=== PATIENT | male | born 1940 | race Caucasian/White ===

== ENCOUNTER → 2018-08-08 09:37 | Outpatient (CLI) | payer MEDICARE, OTHER, SELFPAY | PROVIDERS: PCP Internal Medicine; Visit Provider Internal Medicine | DX: I49.9 Cardiac arrhythmia, unspecified (principal); I25.10 Atherosclerotic heart disease of native coronary artery without angina pectoris; I10 Essential (primary) hypertension | CPT/HCPCS: 93005 ==

== ENCOUNTER 2019-03-30 09:33 | Inpatient (IN) ==
--- NOTE | 2019-03-30 09:55 | Emergency Department Note ---
ED Disposition Clinical Impression: Chronic atrial fibrillation, Non-STEMI (non-ST elevated myocardial infarction) Congestive heart failure Qualifiers: Heart failure type: unspecified Heart failure chronicity: acute on chronic Qualified Code(s): I50.9 - Heart failure, unspecified Disposition: Admitted As Inpatient Condition on Discharge: Fair Instructions: Heart Failure Additional Instructions: Discussed with Dr. Terry and patient being admitted for congestive heart failure and non-STEMI with a consult to . I will attempt to put in a daily Ryan catheter and he may need to have a urology evaluation as well Referrals: Shay Monreal [Primary Care Provider] - Time of Disposition: 11:20 - Critical Care Critical Care Time: No Attestation: On , the high probability of a clinically significant, sudden or life threatening deterioration of the following system(s) required my full and direct attention, intervention and personal management. The time I documented below is in addition to time spent performing reported procedures but includes the following listed in this critical care notation. Medical Decision Making - Medical Records Medical records reviewed: Yes: I reviewed the patient's medical records. - Job Inquiry Pt receiving controlled substance: No Job was queried for this patient: No Vital Signs: 03/30/19 09:47 03/30/19 09:53 03/30/19 09:55 Pulse Rate [Left Radial] 102 H Pulse Rate [Right] 90 Respiratory Rate 28 H Blood Pressure [Right Arm] 131/73 Blood Pressure [Right Radial Artery] 149/97 H Blood Pressure Mean [Right Arm] 92 Blood Pressure Mean [Right Radial Artery] 114 Blood Pressure Position [Right Arm] Blood Pressure Position [Right Radial Artery] Sitting 02 Sat by Pulse Oximetry 89 L 94 L 96 Oxygen Delivery Method Room Air Nasal Cannula Oxygen Flow Rate (LPM) 2 03/30/19 10:04 03/30/19 10:30 Pulse Rate [Left Radial] Pulse Rate [Right] 76 83 Respiratory Rate Blood Pressure [Right Arm] 108/58 L 119/63 Blood Pressure [Right Radial Artery] Blood Pressure Mean [Right Arm] 74 81 Blood Pressure Mean [Right Radial Artery] Blood Pressure Position [Right Arm] Sitting Sitting Blood Pressure Position [Right Radial Artery] 02 Sat by Pulse Oximetry Oxygen Delivery Method Oxygen Flow Rate (LPM) - Lab Data Lab results reviewed: Yes: I reviewed the patient's lab results. Lab Results 03/30/19 09:59: Specimen Source Left radial, O2 % 32%, ABG pH 7.40, ABG pCO2 39.9, ABG pO2 73.3 L, ABG HCO3 24.2, ABG Total CO2 25.4, ABG O2 Saturation 95, ABG Base Excess -0.6, Hayden Test Acceptable 03/30/19 10:00: WBC 8.3, RBC 4.53 L, Hgb 15.1, Hct 46.4, MCV 102.5 H, MCH 33.4 H , MCHC 32.6, RDW 14.6, Plt Count 217, MPV 8.5, Neut % (Auto) 77.2, Lymph % (Auto) 11.2, [place] % (Auto) 9.7 H, Eos % (Auto) 1.2, Baso % (Auto) 0.6, Neut # (Auto) 6.4, Lymph # (Auto) 0.9, [place] # (Auto) 0.8, Eos # (Auto) 0.1, Baso # (Auto) 0.1 03/30/19 10:00: Sodium 139, Potassium 4.0, Chloride 99, Carbon Dioxide 25, Anion Gap 14.8, BUN 33 H, Creatinine 1.16, Estimated Creat Clear 78, Estimated GFR 61, Est GFR ( Amer) 74, Glucose 151 H, Calcium 9.0, Total Bilirubin 0.9, Direct Bilirubin 0.3 H, Indirect Bilirubin 0.6, AST 17, ALT 18, Alkaline Phosphatase 69, Troponin I 0.73 H, Total Protein 6.6, Albumin 3.5 03/30/19 10:00: B-Natriuretic Peptide 367 H Result diagrams: 03/30/19 10:00 03/30/19 10:00 Orders (Tests/Meds): ED MEDICATIONS Discontinued Medications Generic Name Dose Route Start Last Admin Trade Name Freq PRN Reason Stop Dose Admin Bumetanide 2 mg 03/30/19 09:55 03/30/19 10:04 Bumex 1mg/4ml Vial IV 03/30/19 09:56 2 mg ONCE ONE Administration ORDERS Category Date Time Status Troponin I Q3H Lab 03/30/19 13:00 Ordered Troponin I Q3H Lab 03/30/19 16:00 Ordered Urinalysis and Microscopic Stat Lab 03/30/19 09:56 Ordered - Radiology Data #1 Image(s): Chest Image Reviewed: Yes I reviewed the patient's radiology results, Yes I discussed the image results w/the radiologist, Yes I have reviewed radiologist's interpretation Cardiomegaly but no overt failure - ECG Data Tracing #1 I reviewed this ECG and interpreted as documented below: Atrial fibrillation with competing junctional pacemaker left axis deviation old inferior infarct pattern possibly old anterior infarct pattern and nonspecific ST-T changes ECG initial impression date: 03/30/19 ECG initial impression time: 09:45 Resp/SOB HPI - General Stated Complaint: stomach swelling,can't walk Time Seen by Provider: 03/30/19 09:48 - History of Present Illness Patient is a 78-year-old white male who comes to the emergency room with complaints of increased swelling and shortness of breath for the past week he has a history of chronic atrial fibrillation but takes only aspirin and is on Bumex and takes 2 pills/day but has gradually been swelling more over the past week he has some orthopnea and for the past couple of days is not been able to lay down to sleep and his peripheral swelling has gotten worse as well he is a patient of Dr. Wayne and has had bypass surgery and other heart surgery at to remove an area of the heart susceptible to clots so that he would not get blood clots forming inside the heart and that is why he is only on aspirin he has never been a smoker he does have a history of having drunk alcohol in the past but none recently - Related Data Home Medications Medication Instructions Recorded Confirmed Bumetanide 0.5 mg PO DAILY 05/12/18 05/12/18 Metformin HCl 1,000 mg PO DAILY 05/12/18 05/12/18 Sertraline HCl [Zoloft 50mg tablet] 50 mg PO DAILY 05/12/18 05/12/18 Tramadol HCl [Tramadol 50mg 50 mg PO Q8 05/12/18 05/12/18 Tab] lisinopriL [Lisinopril 2.5mg Tab] 2.5 mg PO DAILY 05/12/18 05/12/18 Allergies Allergy/AdvReac Type Severity Reaction Status Date / Time No Known Allergies Allergy Verified 05/12/18 15:14 [facility] History - Hepatitis A Screen Drug use history?: No High risk sexual behaviors?: No History of sexually transmitted infection?: No Currently employed?: No Childcare worker?: No Do you have indoor plumbing?: Yes Do you have electricity?: Yes Attestation statement:: This patient has been screened for Hepatitis A risk factors. I have reviewed the patient's past medical history: Yes Medical History: Reports:: Atherosclerotic Heart Disease, Atrial Fibrillation, Congestive Heart Failure Other Surgeries: Yes: CABG Amputation: No Fractures: Yes (Has had a right shoulder replacement and a right hip replacement) - Social History Alcohol Intake: never Occupational Status: other ROS Obtained: Yes All systems reviewed & no additional complaints - Constitutional Constitutional: Reports system reviewed and no additional complaints, except as docu, Reports as per HPI, Reports weight gain - Cardiovascular Cardiovascular: Reports system reviewed and no additional complaints, except as docu, Reports as per HPI, Reports irregular heart rhythm, Reports shortness of breath when lying down - Respiratory Respiratory: Yes system reviewed and no additional complaints, except as docu, Yes as per HPI Physical Exam - General General appearance: alert, in no apparent distress - Head Head exam: atraumatic - Eye Eye exam: Present: normal appearance - ENT ENT exam: Present: normal exam - Neck Neck exam: Present: normal inspection, other (Increased jugular venous distention) - Chest Chest inspection: Present: normal inspection, other (Rales in the bases) - Respiratory Respiratory exam: Present: normal lung sounds bilaterally - Cardiovascular Cardiovascular exam: Present: irregular rhythm - Abdominal Exam Abdominal exam: Present: soft, normal bowel sounds - Extremities Exam Extremities exam: Present: pedal edema, other (And pretibial edema) - Neurological Exam Neurological exam: Present: alert, oriented X3 - Psychiatric Psychiatric exam: Present: normal affect
[2019-03-30 10:24] LABS: Basophils # 0.1 K/mm3 (0-0.2); Basophils % 0.6 % (0.1-2.0); Eosinophils # 0.1 K/mm3 (0.0-0.4); Eosinophils % 1.2 % (0.1-12.0); Hematocrit 46.4 % (42.0-52.0); Hemoglobin 15.1 g/dL (14.1-18.0); Lymphocytes # 0.9 K/mm3 (0.7-4.5); Lymphocytes % 11.2 % (10-50); Mean Corpuscular HGB Conc 32.6 g/dL (31.8-35.4); Mean Corpuscular Volume 102.5 fl (80-94); Mean Platelet Volume 8.5 fl (7.4-10.4); Monocytes # 0.8 K/mm3 (0.1-1.0); Monocytes % 9.7 % (1.7-9.3); Neutrophils # 6.4 K/mm3 (1.8-7.8); Neutrophils % 77.2 % (37.0-80.0); Platelet Count 217 K/mm3 (142-424); Red Blood Count 4.53 M/mm3 (4.60-6.20); Red Cell Distribution Width 14.6 % (11.5-17.5); White Blood Count 8.3 K/mm3 (4.8-10.8)
[2019-03-30 10:26] LABS: ABG Base Excess -0.6 mmol/L (-2.4-2.3); ABG HCO3 24.2 mmhg (22.0-26.0); ABG Oxygen Saturation 95 % (90-100); ABG PCO2 39.9 mmhg (35.0-45.0); ABG PO2 73.3 mmhg (80-100); ABG TCO2 25.4 mmhg (23-27)
[2019-03-30 10:28] LABS: Allen's Test Acceptable; Oxygen 32% %
[2019-03-30 10:54] LABS: Albumin Level 3.5 gm/dL (3.4-5.0); Anion Gap 14.8 mEq/L (5-15); Bilirubin,Direct 0.3 mg/dL (0.0-0.2); Bilirubin,Indirect 0.6 mg/dL (0.0-0.9); Bilirubin,Total 0.9 mg/dL (0.2-1.0); Total Protein,Serum 6.6 gm/dL (6.4-8.2)
[2019-03-30 11:26] LABS: Appearance,Urine CLEAR (Clear); Bilirubin,Urine Negative (Negative); Blood, Urine Negative (Negative); Color,Urine YELLOW (Yellow); Glucose,Urine (UA) Negative (Negative); Ketones,Urine Negative (Negative); Leukocyte Esterase,Urine Negative (Negative); Microscopic, Urine URINE MICROSCOPIC (MICROSCOPIC); Protein,Urine Negative (Negative); Urobilinogen,Urine 0.2 EU/dl (0.2)
[2019-03-30 11:34] LABS: RBC,Urine Occasional #/hpf (0-3)
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
--- NOTE | 2019-03-30 14:11 | Pharmacy Consult Notes ---
[facility] Pharmacy VTE Monitoring - Patient Demographics Admission date: 03/30/19 Report Date: 03/30/19 Time: 14:11 Allergies/Adverse Reactions: Patient Allergies No Known Allergies Allergy (Verified 05/12/18 15:14) Height: 1.78 m Weight: 103.419 kg Patient Problems: Current Active Problems Congestive heart failure (Acute) Chronic atrial fibrillation (Chronic) Non-STEMI (non-ST elevated myocardial infarction) (Acute) SOB (shortness of breath) (Acute) Atypical angina (Acute) Edema (Acute) HTN (hypertension) (Chronic) HLD (hyperlipidemia) (Chronic) Diabetes (Chronic) History of coronary artery bypass graft (Chronic) Abnormal EKG (Acute) - VTE Risk Labs: VTE Related Lab Results Hgb 15.1 g/dL (14.1-18.0) 03/30/19 10:00 Hct 46.4 % (42.0-52.0) 03/30/19 10:00 Plt Count 217 K/mm3 (142-424) 03/30/19 10:00 BUN 33 mg/dL (7-18) H 03/30/19 10:00 Creatinine 1.16 mg/dL (0.70-1.30) 03/30/19 10:00 Estimated Creat Clear 78 mL/min (50-200) 03/30/19 10:00 - Prophylaxis VTE Prophylaxis Ordered?: Yes Types of VTE Prophylaxis: TEDS Knee High Location of Applied Device: Bilateral Lower Extremeties - VTE Diagnosis Confirmed Treatment or plan recommended: Continue Current Treatment
--- NOTE | 2019-03-30 18:23 | Electrocardiograph Report ---
APPROVED REPORT Exam: Resting ECG HR:86 bpm ECG Measurements Heart Rate 86 AXES QRSd 100 QRS -39 QT 374 T127 QTc 447 <Conclusion> Atrial fibrillation with a competing junctional pacemaker Left axis deviation Inferior infarct-old T wave abnormality, consider lateral ischemia or digitalis effect Abnormal ECG Electronically signed by : Shay Monreal, 03/30/2019 18:22:38
--- NOTE | 2019-03-30 18:39 | History & Physical Report ---
*Admission Date: 03/30/19 *Chief complaint: Dyspnea/swelling *History of present illness: History of present illness: This is a 78-year-old white gentleman who presents to the emergency department with complaints of shortness of breath and increased bilateral lower extremity edema. The patient states that this started about a week ago. He states that he feels full in his chest as well. He states that he has been experiencing orthopnea associated with the shortness of breath. For the last 2 days he has been unable to sleep in his bed because he is unable to lie flat. He has had to sleep in his lazy boy recliner in the living room. He states that his shortness of breath is worse with exertion and does improve with rest. He states nothing has been helping to improve his shortness of breath, fullness in the chest and bilateral lower extremity edema. He states that he does take Bumex at home, 2 pills a day. He also reports having chronic atrial fibrillation. The patient is status post left atrial appendage clip or ligation. He is unsure exactly which procedure he had done. He had this done about 4 years ago at the time of his coronary artery bypass grafting. The patient reports having no ischemic evaluation in the last 4 years other than an echocardiogram a few months ago which did show an ejection fraction of 40%. The patient denies any fever, chills, nausea, vomiting, diarrhea. Above note per cardiology consult. Agree with above. Patient follows normally with [facility] cardiology. [facility] History I have reviewed the patient's past medical history: Yes Medical History: Reports:: Atherosclerotic Heart Disease, Atrial Fibrillation, Congestive Heart Failure, Coronary Artery Disease, Diabetes Mellitus Type 2, Hyperlipidemia, Hypertension Denies:: Home Oxygen *Have you ever received a pneumonia vaccine?: Yes *Have you received a flu vaccine this season?: Yes Other Surgeries: Yes: CABG, Cardiac Catheterization, Other (PIEDAD clip/ligation) Amputation: No Fractures: Yes (Has had a right shoulder replacement and a right hip replacement) - *Social History Educational Level: Completed College Smoking Status: Former smoker Alcohol Intake: never *Occupational Status:: other *Travel in the last 8 weeks: None Family Hx:: Hyperlipidemia, Hypertension Review of Systems - Review of Systems Review of systems:: pertinent systems reviewed and negative unless documented below - Constitutional Reports fatigue, Reports malaise, Denies anorexia, Denies excessive sweating - Eyes Denies discharge, Denies dry eyes - ENT Reports dizziness, Denies abnormal hearing, Denies poor balance - *Cardiovascular Reports chest pain, Reports chest pain with activity, Reports excessive sweating, Reports generalized swelling, Reports leg swelling, Reports shortness of breath when lying down, Reports shortness of breath causing sudden awakening - *Respiratory Reports shortness of breath, Reports shortness of breath with activity, Denies change in phlegm color - *Gastrointestinal Denies abdominal pain, Denies change in stools, Denies loose stools - *Genitourinary Denies difficulty urinating - *Musculoskeletal Denies abnormal walking - *Neurologic Reports weakness Meds Home Medications Medication Instructions Recorded Confirmed Type Bumetanide 1 mg PO DAILY 05/12/18 03/30/19 History Metformin HCl 1,000 mg PO BIDWM 05/12/18 03/30/19 History Sertraline HCl [Zoloft 50mg tablet] 50 mg PO DAILY 05/12/18 03/30/19 History lisinopriL [Lisinopril 2.5mg Tab] 2.5 mg PO DAILY 05/12/18 03/30/19 History Atorvastatin Calcium [Atorvastatin 80 mg PO HS 03/30/19 03/30/19 History 80mg Tab] Metoprolol Succinate 12.5 mg PO DAILY 03/30/19 03/30/19 History Pregabalin 100 mg PO TID 03/30/19 03/30/19 History Allergies Allergy/AdvReac Type Severity Reaction Status Date / Time No Known Allergies Allergy Verified 05/12/18 15:14 Exam Vital signs and Labs for Last 24 Hours: Temp Pulse Resp BP Pulse Ox 97.8 F 63 18 99/63 L 93 L 03/30/19 13:45 03/30/19 17:30 03/30/19 17:30 03/30/19 17:30 03/30/19 17:30 Laboratory Results - last 24 hr 03/30/19 09:59: Specimen Source Left radial, O2 % 32%, ABG pH 7.40, ABG pCO2 39.9, ABG pO2 73.3 L, ABG HCO3 24.2, ABG Total CO2 25.4, ABG O2 Saturation 95, ABG Base Excess -0.6, Hayden Test Acceptable 03/30/19 10:00: WBC 8.3, RBC 4.53 L, Hgb 15.1, Hct 46.4, MCV 102.5 H, MCH 33.4 H , MCHC 32.6, RDW 14.6, Plt Count 217, MPV 8.5, Neut % (Auto) 77.2, Lymph % (Auto) 11.2, [place] % (Auto) 9.7 H, Eos % (Auto) 1.2, Baso % (Auto) 0.6, Neut # (Auto) 6.4, Lymph # (Auto) 0.9, [place] # (Auto) 0.8, Eos # (Auto) 0.1, Baso # (Auto) 0.1 03/30/19 10:00: Sodium 139, Potassium 4.0, Chloride 99, Carbon Dioxide 25, Anion Gap 14.8, BUN 33 H, Creatinine 1.16, Estimated Creat Clear 78, Estimated GFR 61, Est GFR ( Amer) 74, Glucose 151 H, Calcium 9.0, Total Bilirubin 0.9, Direct Bilirubin 0.3 H, Indirect Bilirubin 0.6, AST 17, ALT 18, Alkaline Phosphatase 69, Troponin I 0.73 H, Total Protein 6.6, Albumin 3.5 03/30/19 10:00: B-Natriuretic Peptide 367 H 03/30/19 11:21: Urine Color Yellow, Urine Appearance Clear, Urine pH 5.0, Ur Specific [place] 1.020, Urine Protein Negative, Urine Glucose (UA) Negative, Urine Ketones Negative, Urine Blood Negative, Urine Nitrate Negative, Urine Bilirubin Negative, Urine Urobilinogen 0.2, Ur Leukocyte Esterase Negative, Urine RBC Occasional, Urine WBC None, Ur Squamous Epith Cells None, Urine Bacteria None 03/30/19 12:44: ABG O2 Sat (Measured) 70.1 L, POC VBG O2 Sat (Maria Fernanda) 69.7 L 03/30/19 14:30: Troponin I 0.69 H 03/30/19 16:05: Troponin I 0.66 H 03/30/19 16:22: POC Glucose 136 H I & O for Last 24 hours: Intake & Output 03/28/19 03/29/19 03/30/19 03/31/19 11:59 11:59 11:59 11:59 Output Total 515 / 515 Balance -515 / -515 Weight 228 lb Narrative: Patient was examined after heart cath and several liters of diuresis. Patient states that he is feeling much better and less short of air. Patient is alert. Oriented. No JVD. Lungs have good air movement. Heart rate regular with flow murmur. Abdomen soft. Pedal edema is noted but apparently improved. Ryan catheter draining clear yellow urine. Neurologic exam intact. Assessment and Plan (1) Non-STEMI (non-ST elevated myocardial infarction) Current visit: Yes Status: Acute Category: Medical Code(s): I21.4 - Non-ST elevation (NSTEMI) myocardial infarction (2) Congestive heart failure Current visit: Yes Status: Acute Qualifiers: Heart failure type: unspecified Heart failure chronicity: acute on chronic Qualified Code(s): I50.9 - Heart failure, unspecified Category: Medical Code(s): I50.9 - Heart failure, unspecified (3) Atypical angina Current visit: Yes Status: Acute Category: Medical Code(s): I20.8 - Other forms of angina pectoris (4) SOB (shortness of breath) Current visit: Yes Status: Acute Category: Medical Code(s): R06.02 - Shortness of breath (5) Edema Current visit: Yes Status: Acute Category: Medical Code(s): R60.9 - Edema, unspecified (6) HTN (hypertension) Current visit: Yes Status: Chronic Category: Medical Code(s): I10 - Essential (primary) hypertension (7) HLD (hyperlipidemia) Current visit: Yes Status: Chronic Category: Medical Code(s): E78.5 - Hyperlipidemia, unspecified (8) Diabetes Current visit: Yes Status: Chronic Category: Medical Code(s): E11.9 - Type 2 diabetes mellitus without complications (9) History of coronary artery bypass graft Current visit: Yes Status: Chronic Category: Surgical Code(s): Z95.1 - Presence of aortocoronary bypass graft (10) Chronic atrial fibrillation Current visit: Yes Status: Chronic Category: Medical Code(s): I48.20 - Chronic atrial fibrillation, unspecified (11) Abnormal EKG Current visit: Yes Status: Acute Category: Medical Code(s): R94.31 - Abnormal electrocardiogram [ECG] [EKG] - Assessment and plan all Dx Assessment and Plan for all problems:: Plan will be to continue aggressive diuresis. Check labs tomorrow morning. Significantly reduced EF from baseline. Record requested from [facility].
[2019-03-31 07:43] LABS: Albumin Level 2.9 gm/dL (3.4-5.0); Albumin/Globulin Ratio 1.1 (1.1-1.8); Anion Gap 10.6 mEq/L (5-15); Bilirubin,Direct 0.3 mg/dL (0.0-0.2); Bilirubin,Total 0.8 mg/dL (0.2-1.0); Calcium 8.1 mg/dL (8.5-10.1); Chol/HDL Ratio 2.4 (1-3.5); Globulin 2.7 gm/dl (1.3-3.2); Phosphorous 4.1 mg/dL (2.4-4.9); Total Protein,Serum 5.6 gm/dL (6.4-8.2)
[2019-03-31 07:45] LABS: INR 1.15 (0.9-1.1); Prothrombin Time 11.9 seconds (9.4-11.8)
[2019-03-31 07:54] LABS: Basophils # 0.1 K/mm3 (0-0.2); Basophils % 0.7 % (0.1-2.0); Eosinophils # 0.1 K/mm3 (0.0-0.4); Eosinophils % 1.8 % (0.1-12.0); Hematocrit 44.6 % (42.0-52.0); Hemoglobin 14.1 g/dL (14.1-18.0); Lymphocytes # 0.7 K/mm3 (0.7-4.5); Lymphocytes % 9.6 % (10-50); Mean Corpuscular HGB Conc 31.5 g/dL (31.8-35.4); Mean Corpuscular Volume 102.7 fl (80-94); Mean Platelet Volume 8.3 fl (7.4-10.4); Monocytes # 0.8 K/mm3 (0.1-1.0); Monocytes % 11.4 % (1.7-9.3); Neutrophils # 5.3 K/mm3 (1.8-7.8); Neutrophils % 76.5 % (37.0-80.0); Platelet Count 177 K/mm3 (142-424); Red Blood Count 4.34 M/mm3 (4.60-6.20); Red Cell Distribution Width 14.6 % (11.5-17.5)
--- NOTE | 2019-03-31 08:45 | Progress Note ---
Internal Medicine - PN: Subj *Date: 03/31/19 *Time: 08:41 Interval history: Patient did well overnight. Continues to be in sinus rhythm with frequent PVCs, but no runs of V. tach or SVT. He feels much better with better breathing, and ate 100% of his breakfast this morning. Exam Vital signs and Labs for Last 24 Hours: Temp Pulse Resp BP Pulse Ox 98.5 F 70 18 96/61 L 92 L 03/31/19 08:00 03/31/19 08:00 03/31/19 08:00 03/31/19 08:00 03/31/19 08:00 Laboratory Results - last 24 hr 03/30/19 09:59: Specimen Source Left radial, O2 % 32%, ABG pH 7.40, ABG pCO2 39.9, ABG pO2 73.3 L, ABG HCO3 24.2, ABG Total CO2 25.4, ABG O2 Saturation 95, ABG Base Excess -0.6, Hayden Test Acceptable 03/30/19 10:00: WBC 8.3, RBC 4.53 L, Hgb 15.1, Hct 46.4, MCV 102.5 H, MCH 33.4 H , MCHC 32.6, RDW 14.6, Plt Count 217, MPV 8.5, Neut % (Auto) 77.2, Lymph % (Auto) 11.2, [place] % (Auto) 9.7 H, Eos % (Auto) 1.2, Baso % (Auto) 0.6, Neut # (Auto) 6.4, Lymph # (Auto) 0.9, [place] # (Auto) 0.8, Eos # (Auto) 0.1, Baso # (Auto) 0.1 03/30/19 10:00: Sodium 139, Potassium 4.0, Chloride 99, Carbon Dioxide 25, Anion Gap 14.8, BUN 33 H, Creatinine 1.16, Estimated Creat Clear 78, Estimated GFR 61, Est GFR ( Amer) 74, Glucose 151 H, Calcium 9.0, Total Bilirubin 0.9, Direct Bilirubin 0.3 H, Indirect Bilirubin 0.6, AST 17, ALT 18, Alkaline Phosphatase 69, Troponin I 0.73 H, Total Protein 6.6, Albumin 3.5 03/30/19 10:00: B-Natriuretic Peptide 367 H 03/30/19 11:21: Urine Color Yellow, Urine Appearance Clear, Urine pH 5.0, Ur S pecific [place] 1.020, Urine Protein Negative, Urine Glucose (UA) Negative, Urine Ketones Negative, Urine Blood Negative, Urine Nitrate Negative, Urine Bilirubin Negative, Urine Urobilinogen 0.2, Ur Leukocyte Esterase Negative, Urine RBC Occasional, Urine WBC None, Ur Squamous Epith Cells None, Urine Bacteria None 03/30/19 12:44: ABG O2 Sat (Measured) 70.1 L, POC VBG O2 Sat (Maria Fernanda) 69.7 L 03/30/19 14:30: Troponin I 0.69 H 03/30/19 16:05: Troponin I 0.66 H 03/30/19 16:22: POC Glucose 136 H 03/30/19 20:13: POC Glucose 175 H 03/31/19 05:39: POC Glucose 135 H 03/31/19 06:15: WBC 7.0, RBC 4.34 L, Hgb 14.1, Hct 44.6, MCV 102.7 H, MCH 32.4 H , MCHC 31.5 L, RDW 14.6, Plt Count 177, MPV 8.3, Neut % (Auto) 76.5, Lymph % (Auto) 9.6 L, [place] % (Auto) 11.4 H, Eos % (Auto) 1.8, Baso % (Auto) 0.7, Neut # (Auto) 5.3, Lymph # (Auto) 0.7, [place] # (Auto) 0.8, Eos # (Auto) 0.1, Baso # (Auto) 0.1 03/31/19 06:15: PT 11.9 H, INR 1.15 H 03/31/19 06:15: Sodium 140, Potassium 3.6, Chloride 102, Carbon Dioxide 31 D, Anion Gap 10.6, BUN 31 H, Creatinine 0.97, Estimated Creat Clear 91, Estimated GFR 75, Est GFR ( Amer) 91 D, Glucose 131 H, Calcium 8.1 L, Phosphorus 4.1, Magnesium 1.2 L, Total Bilirubin 0.8, Direct Bilirubin 0.3 H, AST 14 L, ALT 15, Alkaline Phosphatase 62, Total Protein 5.6 L, Albumin 2.9 L D, Globulin 2.7, Albumin/Globulin Ratio 1.1, Triglycerides 69, Cholesterol 83 L, LDL Cholesterol 34, VLDL Cholesterol 14, HDL Cholesterol 35, Cholesterol/HDL Ratio 2.4 I & O for Last 24 hours: Intake & Output 03/28/19 03/29/19 03/30/19 03/31/19 11:59 11:59 11:59 11:59 Output Total 1989 Balance -1989 Weight 228 lb 230 lb Narrative: Patient looks good, alert, oriented x2, a little fuzzy about the date. Anterior lung yip are clear, heart rate regular with a very rare ectopic beats when I examined him. Abdomen soft and nontender. Much better edema exam in the legs. No sacral edema. Ryan catheter is draining clear yellow urine. I reviewed vital signs, labs, ins and outs and weight as above. I think the 2 pound weight gain is secondary to different scales as he is clearly diuresing very nicely. Assessment and Plan (1) Non-STEMI (non-ST elevated myocardial infarction) Current visit: Yes Status: Acute Category: Medical Code(s): I21.4 - Non-ST elevation (NSTEMI) myocardial infarction (2) Congestive heart failure Current visit: Yes Status: Acute Qualifiers: Heart failure type: unspecified Heart failure chronicity: acute on chronic Qualified Code(s): I50.9 - Heart failure, unspecified Category: Medical Code(s): I50.9 - Heart failure, unspecified (3) Atypical angina Current visit: Yes Status: Acute Category: Medical Code(s): I20.8 - Other forms of angina pectoris (4) SOB (shortness of breath) Current visit: Yes Status: Acute Category: Medical Code(s): R06.02 - Shortness of breath (5) Edema Current visit: Yes Status: Acute Category: Medical Code(s): R60.9 - Edema, unspecified (6) HTN (hypertension) Current visit: Yes Status: Chronic Category: Medical Code(s): I10 - Essential (primary) hypertension (7) HLD (hyperlipidemia) Current visit: Yes Status: Chronic Category: Medical Code(s): E78.5 - Hyperlipidemia, unspecified (8) Diabetes Current visit: Yes Status: Chronic Category: Medical Code(s): E11.9 - Type 2 diabetes mellitus without complications (9) History of coronary artery bypass graft Current visit: Yes Status: Chronic Category: Surgical Code(s): Z95.1 - Presence of aortocoronary bypass graft (10) Chronic atrial fibrillation Current visit: Yes Status: Chronic Category: Medical Code(s): I48.20 - Chronic atrial fibrillation, unspecified (11) Abnormal EKG Current visit: Yes Status: Acute Category: Medical Code(s): R94.31 - Abnormal electrocardiogram [ECG] [EKG] - Assessment and plan all Dx Assessment and Plan for all problems:: Patient is dramatically improved overnight. No change in plans. Continue diuresis. Patient's creatinine has improved with diuresis and electrolytes remained stable. Continue monitoring blood pressure, labs tomorrow and aggressive diuresis for his severe heart failure. I reviewed cath results once again with patient. Of note, patient discussed with nursing staff that "my sister wants me to be transferred to ." Patient sister is a psychiatrist in [place], Dr. Mansfield, whom I had a very nice and lengthy conversation with last night and there was no indication she wished to transfer to . The patient reports that she has discussed the case with a friend of theirs, Dr. Maldonado, at and that "he thinks I need to be there." I told patient that that was not my opinion. That his sister was welcome to call me at any time, and in fact I gave her my personal cell phone number last night. There is no indication for transfer, as we have already accomplished the left heart cath, echocardiogram and patient is improving. I instructed the patient to have his sister call me if she had further questions or discuss the case with Dr. Hopkins.
--- NOTE | 2019-04-01 08:47 | Progress Note ---
Internal Medicine - PN: Subj *Date: 04/01/19 *Time: 08:46 Interval history: Overall patient feels much better, up in a chair, breathing much more easily. Nursing staff have noticed some blood-tinged urine in the Ryan catheter after patient is moved around quite a bit. Patient complains of no pain, catheter is draining easily. Excellent urine output overnight over almost 2 L. Exam Vital signs and Labs for Last 24 Hours: Temp Pulse Resp BP Pulse Ox 97.8 F 67 16 132/67 93 L 04/01/19 04:00 04/01/19 04:00 04/01/19 04:00 04/01/19 04:00 04/01/19 04:00 Laboratory Results - last 24 hr 03/31/19 11:21: POC Glucose 150 H 03/31/19 16:04: POC Glucose 108 03/31/19 20:04: POC Glucose 158 H 04/01/19 05:34: POC Glucose 122 H I & O for Last 24 hours: Intake & Output 03/29/19 03/30/19 03/31/19 04/01/19 11:59 11:59 11:59 11:59 Intake Total 378 / 378 Output Total 1989 3300 / 3300 Balance -1989 -2922 / -2922 Weight 228 lb 230 lb 255 lb 8 oz Narrative: Up in the chair, neurologically intact, pleasant and oriented x3. No JVD. Lungs are clear, heart rate regular. Abdomen soft, Ryan catheter draining clear yellow yellow urine this morning. Edema in legs is much improved Assessment and Plan (1) Non-STEMI (non-ST elevated myocardial infarction) Current visit: Yes Status: Acute Category: Medical Code(s): I21.4 - Non-ST elevation (NSTEMI) myocardial infarction (2) Congestive heart failure Current visit: Yes Status: Acute Qualifiers: Heart failure type: unspecified Heart failure chronicity: acute on chronic Qualified Code(s): I50.9 - Heart failure, unspecified Category: Medical Code(s): I50.9 - Heart failure, unspecified (3) Atypical angina Current visit: Yes Status: Acute Category: Medical Code(s): I20.8 - Other forms of angina pectoris (4) SOB (shortness of breath) Current visit: Yes Status: Acute Category: Medical Code(s): R06.02 - Shortness of breath (5) Edema Current visit: Yes Status: Acute Category: Medical Code(s): R60.9 - Edema, unspecified (6) HTN (hypertension) Current visit: Yes Status: Chronic Category: Medical Code(s): I10 - Essential (primary) hypertension (7) HLD (hyperlipidemia) Current visit: Yes Status: Chronic Category: Medical Code(s): E78.5 - Hyperlipidemia, unspecified (8) Diabetes Current visit: Yes Status: Chronic Category: Medical Code(s): E11.9 - Type 2 diabetes mellitus without complications (9) History of coronary artery bypass graft Current visit: Yes Status: Chronic Category: Surgical Code(s): Z95.1 - Presence of aortocoronary bypass graft (10) Chronic atrial fibrillation Current visit: Yes Status: Chronic Category: Medical Code(s): I48.20 - Chronic atrial fibrillation, unspecified (11) Abnormal EKG Current visit: Yes Status: Acute Category: Medical Code(s): R94.31 - Abnormal electrocardiogram [ECG] [EKG] - Assessment and plan all Dx Assessment and Plan for all problems:: Excellent improvement. No change in medications. Continue diuresis. Labs tomorrow. Kidney function is improved.
[2019-04-01 10:20] LABS: Anion Gap 10.8 mEq/L (5-15)
--- NOTE | 2019-04-02 06:26 | Cardiology Report ---
APPROVED REPORT EXAM: Comprehensive 2D, Doppler, and color-flow Echocardiogram Full Stack Software Engineer: Tiffany Palumbo RVT Ht: 5 ft 10 in Wt: 228lbs BSA: 2.21 BP: 119/63 mmHg Indications: Congestive Heart Failure, Non STEMI, Atrial Fibrillation, CAD,CABG, EF of 20-25% on cath from today Echo Enhancing Agent Indication: Endocardial border delineation Agent(s) / Amount(s) Used: Definity 1 cc 2D Dimensions LVOT 2.78 cm (M/F) 1.5-2.5 M-Mode Dimensions RVDd 6.31 cm (0.9-2.6)LA Diam 7.50 cm (1.9-4.0) LVDd 4.70 cm (3.5-5.7)Ao Diam 3.50 cm (2.0-3.7) LVDs 4.18 cm (3.5-5.7)AV Cusp 2.10 cm (1.5-2.6) IVSd 1.04 cm (0.6-1.1)PWd 0.81 cm (0.6-1.1) EF (Teich) 24.10% FS 11.10% EDV (Teich) 102.40 mLESV (Teich) 77.70 mL LV Diastology E/A Ratio 2.45 Mitral Valve MV A Velocity 32.00 (40-130 cm/s) Left Ventricle Left atrium is moderately enlarged, left ventricle is mildly dilated, there is severe reduced left ventricular systolic function, visually estimated ejection fraction 30%, there is marked hypokinesis involving the anterolateral, lateral inferior basal and posterolateral wall. Diastolic parameters are inconclusive. Right Ventricle Right atrium and right ventricle moderately enlarged, contractility of the right ventricle is reduced. Aortic Valve Aortic valve is thickened and calcified there is no aortic stenosis, there is mild aortic insufficiency. Mitral Valve Mitral valve leaflets are minimally thickened, there is mild mitral regurgitation. Tricuspid Valve Tricuspid valve is minimally thickened, there is mild tricuspid regurgitation, calculated right ventricular systolic pressure is 75 to 80 mmHg. Pulmonic Valve Pulmonic valve is poorly visualized. Great Vessels Aortic root is normal size. Pericardium No significant pericardial effusion noted. Conclusion 1. Technically very difficult study, Definity contrast was utilized to delineate the endocardial surfaces. 2. Biatrial enlargement, dilated left ventricle, severely distal ventricular systolic function, visually estimated ejection fraction 30% with multiple segmental wall motion abnormality described above, there is no left ventricular thrombus seen. 3. Moderately enlarged right ventricle with reduced contractility. 4. Thickened and calcified aortic valve without aortic stenosis, there is mild aortic insufficiency. 5. Mild mitral and tricuspid regurgitation, calculated right ventricular systolic pressure is 75 to 80 mmHg. 6. No significant pericardial effusion noted. Electronically signed by : Jose Barragan, 04/02/2019 05:58:19
--- NOTE | 2019-04-02 06:56 | Progress Note ---
Subjective Date: 04/02/19 Time: 06:53 Principal diagnosis: CM, CHF Interval history: 78-year-old white male sitting in bedside chair in no acute distress. States his breathing has improved as well as lower extremity and scrotal edema but still significant. Exam Vital signs and Labs for Last 24 Hours: Temp Pulse Resp BP Pulse Ox 97.9 F 65 20 116/67 94 L 04/02/19 00:00 04/02/19 00:00 04/02/19 00:00 04/02/19 00:00 04/02/19 00:00 Laboratory Results - last 24 hr 04/01/19 05:34: POC Glucose 122 H 04/01/19 10:00: Sodium 142, Potassium 3.8, Chloride 101, Carbon Dioxide 34 H, Anion Gap 10.8, BUN 33 H, Creatinine 1.28 D, Estimated Creat Clear 79, Estimated GFR 54 L, Est GFR ( Amer) 66 D, Glucose 188 H, Calcium 8.0 L 04/01/19 11:25: POC Glucose 167 H 04/01/19 16:07: POC Glucose 150 H 04/01/19 21:28: POC Glucose 161 H I & O for Last 24 hours: Intake & Output 03/30/19 03/31/19 04/01/19 04/02/19 11:59 11:59 11:59 11:59 Intake Total 378 / 378 840 / 840 Output Total 1989 3660 / 3660 1875 / 1875 Balance -1989 -3282 / -3282 -1035 / -1035 Weight 228 lb 230 lb 255 lb 8 oz - *Routine Respiratory Exam Present: decreased breath sounds, CTA bilaterally. Absent: accessory muscle use, rales, rhonchi, wheezes - *Routine Cardiovascular Exam Present: RRR. Absent: murmur, gallop, rubs - *Routine Extremities Exam Present: edema. Absent: calf tenderness - *Routine Neurological Exam Present: alert, oriented X3, moving all extremities Progress Note: A&P (1) Non-STEMI (non-ST elevated myocardial infarction) Status: Acute Current Visit: Yes (2) Congestive heart failure Status: Acute Current Visit: Yes (3) Atypical angina Status: Acute Current Visit: Yes (4) SOB (shortness of breath) Status: Acute Current Visit: Yes (5) Edema Status: Acute Current Visit: Yes (6) HTN (hypertension) Status: Chronic Current Visit: Yes (7) HLD (hyperlipidemia) Status: Chronic Current Visit: Yes (8) Diabetes Status: Chronic Current Visit: Yes (9) History of coronary artery bypass graft Status: Chronic Current Visit: Yes (10) Chronic atrial fibrillation Status: Chronic Current Visit: Yes (11) Abnormal EKG Status: Acute Current Visit: Yes (12) Cardiomyopathy Status: Acute Current Visit: Yes Assessment and Plan for All Diagnoses:: 1. Cardiomyopathy with ejection fraction of 30% by echocardiogram. Continue with IV diuresis until creatinine is approaching 2.2. Continue carvedilol, Entresto and spironolactone. 2. NSTEMI with CAD with history of CABG, medical therapy recommended by [facility] this admission. 3. Chronic atrial fibrillation with CVR and history of left atrial appendage clip. No need for chronic anticoagulation. 4. Hypertension, controlled 5. Hyperlipidemia, will add statin therapy
[2019-04-02 07:30] LABS: Anion Gap 10.9 mEq/L (5-15); Calcium 8.2 mg/dL (8.5-10.1)
--- NOTE | 2019-04-02 09:02 | Progress Note ---
Internal Medicine - PN: Subj *Date: 04/02/19 *Time: 09:01 Interval history: Overall patient continues to feel better. Excellent diuresis. Only complaint is scrotal edema. Labs reviewed. Cardiology consult reviewed Exam Vital signs and Labs for Last 24 Hours: Temp Pulse Resp BP Pulse Ox 97.8 F 64 18 131/62 91 L 04/02/19 04:00 04/02/19 04:00 04/02/19 04:00 04/02/19 04:00 04/02/19 04:00 Laboratory Results - last 24 hr 04/01/19 10:00: Sodium 142, Potassium 3.8, Chloride 101, Carbon Dioxide 34 H, Anion Gap 10.8, BUN 33 H, Creatinine 1.28 D, Estimated Creat Clear 79, Estimated GFR 54 L, Est GFR ( Amer) 66 D, Glucose 188 H, Calcium 8.0 L 04/01/19 11:25: POC Glucose 167 H 04/01/19 16:07: POC Glucose 150 H 04/01/19 21:28: POC Glucose 161 H 04/02/19 06:00: Sodium 143, Potassium 3.9, Chloride 101, Carbon Dioxide 35 H, Anion Gap 10.9, BUN 33 H, Creatinine 1.11, Estimated Creat Clear 91, Estimated GFR 64, Est GFR ( Amer) 78, Glucose 115 H D, Calcium 8.2 L I & O for Last 24 hours: Intake & Output 03/30/19 03/31/19 04/01/19 04/02/19 11:59 11:59 11:59 11:59 Intake Total 378 / 378 840 / 840 Output Total 1989 3660 / 3660 2550 / 2550 Balance -1989 -2 / -328 -171 / -1710 Weight 228 lb 230 lb 255 lb 8 oz 261 lb Narrative: Patient is pleasant, talkative, in no distress. Wearing 1 L of oxygen without problems. Anterior lung yip are much clearer, heart rate regular. Abdomen soft. Scrotal edema is impressive but no weeping or redness to the scrotum. Distal legs are vastly improved, wearing compression stockings. Assessment and Plan (1) Non-STEMI (non-ST elevated myocardial infarction) Current visit: Yes Status: Acute Category: Medical Code(s): I21.4 - Non-ST elevation (NSTEMI) myocardial infarction (2) Congestive heart failure Current visit: Yes Status: Acute Qualifiers: Heart failure type: unspecified Heart failure chronicity: acute on chronic Qualified Code(s): I50.9 - Heart failure, unspecified Category: Medical Code(s): I50.9 - Heart failure, unspecified (3) Atypical angina Current visit: Yes Status: Acute Category: Medical Code(s): I20.8 - Other forms of angina pectoris (4) SOB (shortness of breath) Current visit: Yes Status: Acute Category: Medical Code(s): R06.02 - Shortness of breath (5) Edema Current visit: Yes Status: Acute Category: Medical Code(s): R60.9 - Edema, unspecified (6) HTN (hypertension) Current visit: Yes Status: Chronic Category: Medical Code(s): I10 - Essential (primary) hypertension (7) HLD (hyperlipidemia) Current visit: Yes Status: Chronic Category: Medical Code(s): E78.5 - Hyperlipidemia, unspecified (8) Diabetes Current visit: Yes Status: Chronic Category: Medical Code(s): E11.9 - Type 2 diabetes mellitus without complications (9) History of coronary artery bypass graft Current visit: Yes Status: Chronic Category: Surgical Code(s): Z95.1 - Presence of aortocoronary bypass graft (10) Chronic atrial fibrillation Current visit: Yes Status: Chronic Category: Medical Code(s): I48.20 - Chronic atrial fibrillation, unspecified (11) Abnormal EKG Current visit: Yes Status: Acute Category: Medical Code(s): R94.31 - Abnormal electrocardiogram [ECG] [EKG] (12) Cardiomyopathy Current visit: Yes Status: Acute Category: Medical Code(s): I42.9 - Cardiomyopathy, unspecified - Assessment and plan all Dx Assessment and Plan for all problems:: CHF is improving. Follow cardiology recommendations. Kidney function also improving. Continue elevation for scrotal edema, I will ask Dr. Kirk to see if he has any tips about his scrotal edema.
--- NOTE | 2019-04-02 15:19 | Consult Report ---
*Admission Date: 03/30/19 *Reason for consult:: Penoscrotal edema *History of present illness: Patient is a 78-year-old white male admitted on March 30 atrial fibrillation and ID. Patient has a history of congestive heart failure also reported some scrotal edema at admission. Ryan catheter was placed as patient was having some difficulty voiding due to the penile edema. His white count was normal and his renal function was normal. He has been managed thus far with scrotal elevation. We are asked for any other recommendations. Patient denies any previous history of genitourinary swelling. [facility] History Medical History: Reports:: Atherosclerotic Heart Disease, Atrial Fibrillation, Congestive Heart Failure, Coronary Artery Disease, Diabetes Mellitus Type 2, Hyperlipidemia, Hypertension Denies:: Home Oxygen *Have you ever received a pneumonia vaccine?: Yes *Have you received a flu vaccine this season?: Yes Other Surgeries: Yes: CABG, Cardiac Catheterization, Other (PIEDAD clip/ligation) Amputation: No Fractures: Yes (Has had a right shoulder replacement and a right hip replacement) - *Social History Educational Level: Completed College Smoking Status: Former smoker Alcohol Intake: never *Occupational Status:: other *Travel in the last 8 weeks: None Family Hx:: Hyperlipidemia, Hypertension Review of Systems - Review of Systems Review of systems:: pertinent systems reviewed and negative unless documented below - *Neurologic Reports dizziness, Reports weakness, Denies abnormal walking, Denies abnormal hearing, Denies unsteadiness Meds Home Medications Medication Instructions Recorded Confirmed Type Bumetanide 1 mg PO DAILY 05/12/18 03/30/19 History Metformin HCl 1,000 mg PO BIDWM 05/12/18 03/30/19 History Sertraline HCl [Zoloft 50mg tablet] 50 mg PO DAILY 05/12/18 03/30/19 History lisinopriL [Lisinopril 2.5mg Tab] 2.5 mg PO DAILY 05/12/18 03/30/19 History Atorvastatin Calcium [Atorvastatin 80 mg PO HS 03/30/19 03/30/19 History 80mg Tab] Metoprolol Succinate 12.5 mg PO DAILY 03/30/19 03/30/19 History Pregabalin 100 mg PO TID 03/30/19 03/30/19 History Allergies Allergy/AdvReac Type Severity Reaction Status Date / Time No Known Allergies Allergy Verified 05/12/18 15:14 Exam Vital signs and Labs for Last 24 Hours: Temp Pulse Resp BP Pulse Ox 98.3 F 60 18 101/67 L 94 L 04/02/19 11:58 04/02/19 12:00 04/02/19 11:58 04/02/19 11:58 04/02/19 11:58 Laboratory Results - last 24 hr 04/01/19 16:07: POC Glucose 150 H 04/01/19 21:28: POC Glucose 161 H 04/02/19 05:31: POC Glucose 121 H 04/02/19 06:00: Sodium 143, Potassium 3.9, Chloride 101, Carbon Dioxide 35 H, Anion Gap 10.9, BUN 33 H, Creatinine 1.11, Estimated Creat Clear 91, Estimated GFR 64, Est GFR ( Amer) 78, Glucose 115 H D, Calcium 8.2 L 04/02/19 12:41: POC Glucose 120 H I & O for Last 24 hours: Intake & Output 03/30/19 03/31/19 04/01/19 04/02/19 23:59 23:59 23:59 23:59 Intake Total 378 / 378 720 / 840 720 / 720 Output Total 1115 / 1515 2275 / 3475 3435 / 4135 2375 / 2375 Balance -1115 / -1515 -1897 / -3097 -2715 / -3295 -1655 / -1655 Weight 103.419 kg 104.326 kg 115.893 kg 118.388 kg Narrative: Obese white male sitting up in a chair in no apparent distress Head is normocephalic Neck supple symmetric Normal respiratory effort Abdomen soft nontender examination reveals moderate penoscrotal edema. There is no evidence of cellulitis or skin sloughing. Ryan catheter is present. Sac is no uncomfortable to palpation. Testicles cannot be appreciated due to the scrotal edema. Alert and oriented x3 Internal Medicine - CN: Reslt - Labs CBC & Chem 7: 03/31/19 06:15 04/02/19 06:00 Labs: BMP 04/02/19 06:00 Sodium 143 Potassium 3.9 Chloride 101 Carbon Dioxide 35 H BUN 33 H Creatinine 1.11 Glucose 115 H D Calcium 8.2 L - ABG Interpretation ABG results: 03/30/19 09:59 ABG pH 7.40 ABG pCO2 39.9 ABG pO2 73.3 L ABG HCO3 24.2 ABG Total CO2 25.4 ABG O2 Saturation 95 ABG Base Excess -0.6 Assessment and Plan (1) Non-STEMI (non-ST elevated myocardial infarction) Current visit: Yes Status: Acute Category: Medical Code(s): I21.4 - Non-ST elevation (NSTEMI) myocardial infarction (2) Congestive heart failure Current visit: Yes Status: Acute Qualifiers: Heart failure type: unspecified Heart failure chronicity: acute on chronic Qualified Code(s): I50.9 - Heart failure, unspecified Category: Medical Code(s): I50.9 - Heart failure, unspecified (3) Atypical angina Current visit: Yes Status: Acute Category: Medical Code(s): I20.8 - Other forms of angina pectoris (4) SOB (shortness of breath) Current visit: Yes Status: Acute Category: Medical Code(s): R06.02 - Shortness of breath (5) Edema Current visit: Yes Status: Acute Category: Medical Code(s): R60.9 - Edema, unspecified (6) HTN (hypertension) Current visit: Yes Status: Chronic Category: Medical Code(s): I10 - Essential (primary) hypertension (7) HLD (hyperlipidemia) Current visit: Yes Status: Chronic Category: Medical Code(s): E78.5 - Hyperlipidemia, unspecified (8) Diabetes Current visit: Yes Status: Chronic Category: Medical Code(s): E11.9 - Type 2 diabetes mellitus without complications (9) History of coronary artery bypass graft Current visit: Yes Status: Chronic Category: Surgical Code(s): Z95.1 - Presence of aortocoronary bypass graft (10) Chronic atrial fibrillation Current visit: Yes Status: Chronic Category: Medical Code(s): I48.20 - Chronic atrial fibrillation, unspecified (11) Abnormal EKG Current visit: Yes Status: Acute Category: Medical Code(s): R94.31 - Abnormal electrocardiogram [ECG] [EKG] (12) Cardiomyopathy Current visit: Yes Status: Acute Category: Medical Code(s): I42.9 - Cardiomyopathy, unspecified - Assessment and plan all Dx Assessment and Plan for all problems:: Penoscrotal edema. The edema is secondary to his underlying heart issues. He does have associated lower extremity edema as well. Recommendations are to manage his underlying cardiac disease as well as possible. Diuretics as prescribed. Discussed with the patient that scrotal elevation is going to be very important and lying and sleeping on his back and keeping the testicles up from a twin his legs, be very important. We discussed briefs instead of boxers. I would be more than happy to see the patient 2 weeks after discharge.
[2019-04-03 07:14] LABS: Anion Gap 6.3 mEq/L (5-15); Calcium 8.4 mg/dL (8.5-10.1)
--- NOTE | 2019-04-03 08:14 | Discharge Summary ---
General - General Admission date:: 03/30/19 Discharge date: 04/03/19 HPI HPI: History of present illness: This is a 78-year-old white gentleman who presents to the emergency department with complaints of shortness of breath and increased bilateral lower extremity edema. The patient states that this started about a week ago. He states that he feels full in his chest as well. He states that he has been experiencing orthopnea associated with the shortness of breath. For the last 2 days he has been unable to sleep in his bed because he is unable to lie flat. He has had to sleep in his lazy boy recliner in the living room. He states that his shortness of breath is worse with exertion and does improve with rest. He states nothing has been helping to improve his shortness of breath, fullness in the chest and bilateral lower extremity edema. He states that he does take Bumex at home, 2 pills a day. He also reports having chronic atrial fibrillation. The patient is status post left atrial appendage clip or ligation. He is unsure exactly which procedure he had done. He had this done about 4 years ago at the time of his coronary artery bypass grafting. The patient reports having no ischemic evaluation in the last 4 years other than an echocardiogram a few months ago which did show an ejection fraction of 40%. The patient denies any fever, chills, nausea, vomiting, diarrhea. Above note per cardiology consult. Agree with above. Patient follows normally with [facility] cardiology. Hospital Course Hospital Course: Patient was admitted to the hospital. Diuresis was begun and patient responded briskly with diuresis of 3 L overnight. He was taken to the Area Director the following day with results as noted below: ANGIOGRAPHIC RESULTS The left main artery Normal The left anterior descending artery Has proximal 10 to 20% stenoses and then occluded after the first diagonal artery and first septal b2b sales executive. The circumflex artery Is proximally occluded The right coronary artery Is dominant and has an ostial 50% stenosis. The entire vessel has vascular ectasia accompanied by RACHEL I to RACHEL II flow. Distally the posterior descending artery and posterior lateral ventricular branch are proximally occluded The [place] ventriculogram reveals Severe left ventricular dilatation ejection fraction 2025% The left ventricular end-diastolic pressure Severely elevated at 40 mmHg The left internal mammary artery is widely patent to the mid LAD The saphenous vein graft to the circumflex artery is widely patent with mild proximal 20% stenoses within the graft. Specifically at the anastomosis there is a 90% stenosis in the retrograde obtuse marginal artery and 80% in the antegrade obtuse marginal artery. The saphenous vein graft to the posterior descending artery is widely patent Right atrial pressure 30 mmHg Right ventricular pressure 100/30 Pulmonary artery pressure 100/50 Right atrial saturation 69% Pulmonary artery saturation 71% IMPRESSION Severe ute coronary disease as described above Elevated troponin secondary to decompensated heart failure/type II myocardial infarction stemming from demand ischemia Patent RODRIGUEZ to LAD Patent saphenous vein graft to a severely diseased obtuse marginal artery specifically at the anastomosis site in both the antegrade and retrograde limb of the obtuse marginal artery Patent saphenous vein graft to the right coronary artery Critically high pulmonary hypertension Severe decompensated biventricular congestive heart failure PLAN 1. Medical management for the coronary arteries 2. No attempt at stenting or revascularize in the obtuse marginal artery should be made. Stenting either limb would cause absolute loss of the opposite limb of the obtuse marginal artery. 3. Patient requires massive diuresis. I would continue diuresing patient with high-dose diuretics until the creatinine begins to elevate. As long as the creatinine stays less than 2.2 I would continue with IV diuretics 4. Echocardiogram 5. Patient should be considered for a LifeVest 6. Patient should also be considered for AICD with possible biventricular pacemaker placement 7. Standard therapy for systolic heart failure Given the above information patient was continued on high-dose diuretics with careful monitoring of his kidney function. Interestingly his kidney function actually improved with IV diuresis, creatinine improving from 1.5 down to 1.07 today, probably from better perfusion of his kidneys. He did have some scrotal edema which was treated with standard elevation and cool compresses. Urology saw patient to make sure nothing else was going on and they agreed with this conservative approach. Patient felt much better, he did continue to have an oxygen requirement throughout his hospital stay, and he will require home O2 on discharge because of his CHF. He was continued on Lasix and increased his ability to ambulate around the room. This morning he is reached maximal medical improvement in the hospital. He will be discharged home with new high-dose Lasix therapy, Entresto therapy, and other medications as noted. Short-term cardiology follow-up, quick look echocardiogram will be done today and if patient's EF is below 30% he will be considered for a LifeVest on discharge. Objective Vital signs: Temp Pulse Resp BP Pulse Ox 98.0 F 60 22 118/64 97 04/03/19 04:00 04/03/19 04:00 04/03/19 04:00 04/03/19 04:00 04/03/19 04:00 Narrative: Patient is pleasant, alert, oriented x3. Wearing oxygen and comfortable. Oropharynx clear. No JVD. Lungs have good air movement, vastly improved over admission. Heart rate regular. Abdomen soft. Scrotum is swollen, slightly better than yesterday. Urine output is good. Wearing compression stockings on his extremities, vastly improved edema over admission. Results Labs on day of discharge: Labs from last 24 hours 04/03/19 04/03/19 04/02/19 06:34 06:21 16:39 Sodium 142 Potassium 4.3 Chloride 102 Carbon Dioxide 38 H Anion Gap 6.3 BUN 31 H Creatinine 1.07 Estimated Creat Clear 83 Estimated GFR 67 Est GFR ( Amer) 81 Glucose 134 H POC Glucose 136 H 115 H Calcium 8.4 L 04/02/19 04/02/19 12:41 05:31 Sodium Potassium Chloride Carbon Dioxide Anion Gap BUN Creatinine Estimated Creat Clear Estimated GFR Est GFR ( Amer) Glucose POC Glucose 120 H 121 H Calcium DS: Diagnosis - Discharge Diagnosis (1) Non-STEMI (non-ST elevated myocardial infarction) Status: Acute (2) Congestive heart failure Status: Acute Problem details: Acute systolic on chronic heart failure, NYHA III (3) Atypical angina Status: Acute (4) SOB (shortness of breath) Status: Resolved (5) Edema Status: Acute (6) HTN (hypertension) Status: Chronic (7) HLD (hyperlipidemia) Status: Chronic (8) Diabetes Status: Chronic (9) History of coronary artery bypass graft Status: Chronic (10) Chronic atrial fibrillation Status: Chronic (11) Abnormal EKG Status: Acute (12) Cardiomyopathy Status: Acute Discharge Plan - Patient Discharge Instructions ACTIVITY: Ambulate as tolerated DIET: low salt diet, cardiac Additional Instructions: Discussed with Dr. Bell and patient being admitted for congestive heart failure and non-STEMI with a consult to . I will attempt to put in a daily Ryan catheter and he may need to have a urology evaluation as well Patient Instructions: High Triglycerides, Heart Attack, Heart Failure, Atrial Fibrillation, Cardiac Catheterization, DI for High Blood Pressure, DI for Shortness of Breath, DI for Surgical Site Infection - Follow up Plan Follow up with: Otto Hopkins MD [Staff Physician] - 04/06/19 Disposition: Home, [facility] Medications: Home Medications Medication Instructions Recorded Confirmed Type Bumetanide 1 mg PO DAILY 05/12/18 03/30/19 History Metformin HCl 1,000 mg PO BIDWM 05/12/18 03/30/19 History Sertraline HCl [Zoloft 50mg tablet] 50 mg PO DAILY 05/12/18 03/30/19 History lisinopriL [Lisinopril 2.5mg Tab] 2.5 mg PO DAILY 05/12/18 03/30/19 History Atorvastatin Calcium [Atorvastatin 80 mg PO HS 03/30/19 03/30/19 History 80mg Tab] Metoprolol Succinate 12.5 mg PO DAILY 03/30/19 03/30/19 History Pregabalin 100 mg PO TID 03/30/19 03/30/19 History Furosemide [Lasix 80mg tab] 80 mg PO BIDL #60 tab 04/03/19 Rx Sacubitril/Valsartan [Entresto 1 each PO BID #60 tab 04/03/19 Rx 24/26mg Tablet] Spironolactone [Aldactone 25mg 50 mg PO BID #60 tab 04/03/19 Rx Tab] carvediloL [Coreg 3.125mg Tablet] 3.125 mg PO BID #60 tab 04/03/19 Rx Prescriptions/Medication Reconciliation: New Spironolactone [Aldactone 25mg Tab] 50 mg PO BID #60 tab carvediloL [Coreg 3.125mg Tablet] 3.125 mg PO BID #60 tab Sacubitril/Valsartan [Entresto 24/26mg Tablet] 1 each PO BID #60 tab Furosemide [Lasix 80mg tab] 80 mg PO BIDL #60 tab Continued Sertraline HCl [Zoloft 50mg tablet] 50 mg PO DAILY Metformin HCl 1,000 mg PO BIDWM lisinopriL [Lisinopril 2.5mg Tab] 2.5 mg PO DAILY Atorvastatin Calcium [Atorvastatin 80mg Tab] 80 mg PO HS Pregabalin 100 mg PO TID Discontinued Bumetanide 1 mg PO DAILY Metoprolol Succinate 12.5 mg PO DAILY - Problem Reconciliation Problems Reviewed?: Yes
--- NOTE | 2019-04-03 08:24 | Progress Note ---
Subjective Date: 04/03/19 Time: 08:21 Principal diagnosis: CM, CHF Interval history: 78 yo WM in bed in NAD. No chest pain, pressure or tightness. Breathing better and edema is improving. Life Vest fit yesterday. Exam Vital signs and Labs for Last 24 Hours: Temp Pulse Resp BP Pulse Ox 98.0 F 60 22 118/64 97 04/03/19 04:00 04/03/19 04:00 04/03/19 04:00 04/03/19 04:00 04/03/19 04:00 Laboratory Results - last 24 hr 04/02/19 05:31: POC Glucose 121 H 04/02/19 12:41: POC Glucose 120 H 04/02/19 16:39: POC Glucose 115 H 04/03/19 06:21: POC Glucose 136 H 04/03/19 06:34: Sodium 142, Potassium 4.3, Chloride 102, Carbon Dioxide 38 H, Anion Gap 6.3, BUN 31 H, Creatinine 1.07, Estimated Creat Clear 83, Estimated GFR 67, Est GFR ( Amer) 81, Glucose 134 H, Calcium 8.4 L I & O for Last 24 hours: Intake & Output 03/31/19 04/01/19 04/02/19 04/03/19 11:59 11:59 11:59 11:59 Intake Total 378 / 378 1200 / 1200 500 / 500 Output Total 1989 3660 / 3660 3550 / 3550 2500 / 2500 Balance -1989 / -3282 / -3282 -2350 / -2350 -1999 / Weight 230 lb 255 lb 8 oz 261 lb 225 lb 1 oz - *Routine Respiratory Exam Present: CTA bilaterally. Absent: accessory muscle use, rales, rhonchi, wheezes - *Routine Cardiovascular Exam Present: RRR. Absent: murmur, gallop, rubs - *Routine Extremities Exam Present: edema. Absent: calf tenderness - *Routine Neurological Exam Present: alert, oriented X3, moving all extremities Progress Note: A&P (1) Non-STEMI (non-ST elevated myocardial infarction) Status: Acute Current Visit: Yes (2) Congestive heart failure Problem details: Acute systolic on chronic heart failure, NYHA III Status: Acute Current Visit: Yes (3) Atypical angina Status: Acute Current Visit: Yes (4) SOB (shortness of breath) Status: Resolved Current Visit: Yes (5) Edema Status: Acute Current Visit: Yes (6) HTN (hypertension) Status: Chronic Current Visit: Yes (7) HLD (hyperlipidemia) Status: Chronic Current Visit: Yes (8) Diabetes Status: Chronic Current Visit: Yes (9) History of coronary artery bypass graft Status: Chronic Current Visit: Yes (10) Chronic atrial fibrillation Status: Chronic Current Visit: Yes (11) Abnormal EKG Status: Acute Current Visit: Yes (12) Cardiomyopathy Status: Acute Current Visit: Yes Assessment and Plan for All Diagnoses:: 1. Ok for discharge from cardiology standpoint 2. Follow up in our office later this week with labs to check renal functions. 3. Meds: lasix 80 mg BID, entresto 24/26 mg BID, coreg 3.125 mg BID, aldactone 50 mg BID and atorvastatin 40 mg dialy. 4. Cardiomyopathy with LVEF 30% and CHF this admission. Life Vest in place. 5. Chronic a. fib with history of atrial appendage clip. No anticoagulation needed.
== END 2019-04-03 14:22 | disposition home or self-care (01) | DRG 280 ==
LOC: ER 09:33 → CATHLAB 11:55 → 2ND 13:16
PROVIDERS: ADMIT Internal Medicine Adolescent Medicine; ATTEND Internal Medicine Adolescent Medicine
CPT/HCPCS: 36415; 71010; 71045; 80048; 80053; 80061; 80076; 81001; 82248; 82803; 82810; 82962; 83735; 83880; 84100; 84484; 85025; 85610; 93005; 93306; 93461; 94761; 96374; 99152; 99153; 99285; C1725; C1769; C1894; J1644; Q9957; Q9967

== ENCOUNTER → 2019-09-17 15:55 | Outpatient (CLI) | payer MEDICARE, OTHER, SELFPAY ==
--- NOTE | 2019-09-17 15:58 | US_ITS ---
APPROVED REPORT Exam Type: Lower Extremity Segmental Pressures Special Agent In Charge: Tiffany Palumbo RVT Indications Claudication: Bilaterally Non-healing Ulcer: Rest Pain: Bilaterally CAD ulcer left great toe Risk Factors Hypertension CAD Hyperlipidemia Diabetes Pressures/Indices Right Indices Left Indices Brachial 156.00 mmHg Brachial 150.00 mmHg Low Thigh 173.00 mmHg 1.11 Low Thigh 149.00 mmHg 0.96 Calf 173.00 mmHg 1.11 Calf 161.00 mmHg 1.03 Ankle(PT) 178.00 mmHg 1.14 Ankle(PT) 114.00 mmHg 0.73 Ankle(DP) 168.00 mmHg 1.08 Ankle(DP) 125.00 mmHg 0.80 Digit 152.00 mmHg 0.97 Digit 100.00 mmHg 0.64 Findings RT MAHAMED:1.14 LT MAHAMED:0.73 RT TBI:0.97 LT TBI:0.64 DECREASED WAVEFORMS BILATERAL ANKLES DECREASED PULSES ON THE LEFT Conclusion RT MAHAMED:1.14 LT MAHAMED:0.73 RT TBI:0.97 LT TBI:0.64 DECREASED WAVEFORMS BILATERAL ANKLES DECREASED PULSES ON THE LEFT MODERATE ARTERIAL DISEASE ON THE LEFT Electronically signed by : Hayden Preston MD 09/18/2019 16:46:39
--- NOTE | 2019-09-17 16:41 | XR_ITS ---
PROCEDURE: XR FOOT WT BEARING LT 3V CLINICAL INDICATION: pain, wound COMPARISON: No exams were available for comparison FINDINGS: There is a bandage artifact at the great toe. No obvious bony destructive process evident. No fracture or dislocation. Osteoarthritic changes are present at the 1st MTP joint. There is mild pes planus IMPRESSION: Osteoarthritis of the 1st MTP joint Dictated by: Hayden Preston MD 09/18/2019 07:19 Electronically signed by Hayden Preston MD in [place] 09/18/2019 07:19
[2019-09-17 18:26] LABS: Alanine Aminotransferase 15 U/L (12-78); Albumin Level 4.4 g/dl (3.5-5.0); Albumin/Globulin Ratio 1.6 (1.1-1.8); Alkaline Phosphatase 68 U/L (38-126); Aspartate Amino Transferase 27 U/L (17-59); Basophils # 0.1 K/mm3 (0-0.2); Basophils % 1.6 % (0.1-2.0); Bilirubin,Total 1.2 mg/dl (0.2-1.3); Calcium 9.7 mg/dl (8.4-10.2); Eosinophils # 0.2 K/mm3 (0.0-0.4); Eosinophils % 2.1 % (0.1-12.0); Estimated Glomerular Filt Rate 49 ml/min (>60); GFR (African American) 59 ML/MIN (>60); Globulin 2.7 g/dL (1.3-3.2); Glucose 191 mg/dl (74-100); Hematocrit 41.2 % (42.0-52.0); Hemoglobin 13.3 g/dL (14.1-18.0); Lymphocytes # 0.8 K/mm3 (0.7-4.5); Lymphocytes % 10.6 % (10-50); Mean Corpuscular HGB Conc 32.2 g/dL (31.8-35.4); Mean Corpuscular Hemoglobin 32.5 pg (27.0-31.2); Mean Corpuscular Volume 100.9 fl (80-94); Mean Platelet Volume 8.5 fl (7.4-10.4); Monocytes # 0.7 K/mm3 (0.1-1.0); Monocytes % 8.6 % (1.7-9.3); Neutrophils # 5.8 K/mm3 (1.8-7.8); Platelet Count 248 K/mm3 (142-424); Red Blood Count 4.09 M/mm3 (4.60-6.20); Red Cell Distribution Width 16.2 % (11.5-17.5); Sodium 129 mmol/L (136-145); Total Protein,Serum 7.1 g/dl (6.3-8.2); White Blood Count 7.6 K/mm3 (4.8-10.8)
[2019-09-17 18:29] LABS: Chloride 77 mmol/L (98-107)
[2019-09-17 18:31] LABS: C-Reactive Protein 42.8 mg/L (0-4)
[2019-09-17 18:39] LABS: Blood Urea Nitrogen 76 mg/dl (9-20); INR 1.63 (0.9-1.1); Potassium 2.7 mmoL/L (3.5-5.1); Prothrombin Time 16.3 seconds (9.4-11.8)
[2019-09-17 18:40] LABS: Anion Gap 14.7 mEq/L (5-15); Carbon Dioxide 40 mmol/L (22.0-30.0)
[2019-09-17 19:19] LABS: Hemoglobin A1C 6.2 % (4.0-6.0)
[2019-09-17 20:43] LABS: Erythrocyte Sedimentation Rate 94 mm/hr (0-20)
== END ==
PROVIDERS: PCP Family Medicine; Visit Provider Podiatrist
DX: R09.89 Other specified symptoms and signs involving the circulatory and respiratory systems (principal); Z51.89 Encounter for other specified aftercare; E11.9 Type 2 diabetes mellitus without complications
CPT/HCPCS: 36415; 73630; 80053; 83036; 85025; 85610; 85651; 86140; 93923

== ENCOUNTER → 2019-09-17 17:55 | Outpatient (CLI) | payer MEDICARE, OTHER, SELFPAY | PROVIDERS: Visit Provider Podiatrist | DX: E11.621 Type 2 diabetes mellitus with foot ulcer (principal); E11.628 Type 2 diabetes mellitus with other skin complications; L08.9 Local infection of the skin and subcutaneous tissue, unspecified; L97.529 Non-pressure chronic ulcer of other part of left foot with unspecified severity; Z51.89 Encounter for other specified aftercare; Z79.84 Long term (current) use of oral hypoglycemic drugs; R09.89 Other specified symptoms and signs involving the circulatory and respiratory systems | CPT/HCPCS: 36415; 73630; 80053; 83036; 85025; 85610; 85651; 86140; 87070; 87077; 87186; 87205; 93923 ==